=== PATIENT | female | born 1950 | race Caucasian/White ===

== ENCOUNTER → 2017-08-19 | Outpatient (CLI) | payer OTHER ==
[2017-08-19 14:58] LABS: ALANINE AMINOTRANSFERASE 60 U/L (0-55); ALBUMIN 3.6 GM/DL (3.2-4.5); ANION GAP 10 MMOL/L (5-14); ASPARTATE AMINO TRANSFERASE 24 U/L (5-34); BILIRUBIN,TOTAL 0.3 MG/DL (0.1-1.0); BLOOD UREA NITROGEN 14 MG/DL (7-18); BUN/CREATININE RATIO 24; CALCIUM 9.4 MG/DL (8.5-10.1); CARBON DIOXIDE 27 MMOL/L (21-32); CHLORIDE 104 MMOL/L (98-107); CREATININE SERUM 0.58 MG/DL (0.60-1.30); GFR ESTIMATED > 60; GLUCOSE 123 MG/DL (70-105); POTASSIUM 3.9 MMOL/L (3.6-5.0); SODIUM 141 MMOL/L (135-145); TOTAL PROTEIN 6.4 GM/DL (6.4-8.2)
== END ==
LOC: LABNPT 13:10
PROVIDERS: ATTEND Internal Medicine
DX: I69.091 Dysphagia following nontraumatic subarachnoid hemorrhage (principal); G40.89 Other seizures
CPT/HCPCS: 80053; 80185

== ENCOUNTER → 2017-12-02 | Outpatient (CLI) | payer MEDICARE, MEDICAID ==
--- NOTE | 2017-12-02 15:32 | Diagnostic Imaging Report ---
INDICATION: Dysphagia and prior stroke. PROCEDURE: The procedure was performed in conjunction with speech pathology. Video fluoroscopy was performed during swallowing of barium in multiple consistencies. A total of 2 minutes and 13 seconds of fluoroscopy was utilized. Patient was administered honey and thin consistency as well as applesauce consistency. There was a single episode of flash penetration during swallowing of honey consistency. A second swallow of honey was within normal limits. There was deeper laryngeal penetration during swallowing of thin barium. No aspiration was observed. There appears to be normal epiglottic tilt and laryngeal elevation. No significant vallecular or piriform sinus residue was detected. IMPRESSION: Two episodes of laryngeal penetration, as described above. No aspiration was observed. Dictated by: Dictated on workstation # [id number]
== END ==
LOC: RAD 09:37
PROVIDERS: ATTEND Nurse Practitioner Community Health
DX: I61.9 Nontraumatic intracerebral hemorrhage, unspecified (principal); R13.12 Dysphagia, oropharyngeal phase; Z86.73 Personal history of transient ischemic attack (TIA), and cerebral infarction without residual deficits
CPT/HCPCS: 74230

== ENCOUNTER 2017-12-09 19:10 | Emergency (ER) | payer MEDICARE, MEDICAID ==
[~2017-12-09] VITALS: Ht 170.2 cm; Wt 67.1 kg
[2017-12-09] MEDS ORDERED: morphine INJ 10 MG/ML 1ML (SYR OR VIAL) IVP STA (19:40)
--- NOTE | 2017-12-09 20:52 | Diagnostic Imaging Report ---
PROCEDURE: CT head and CT cervical spine without contrast. TECHNIQUE: Multiple contiguous axial images were obtained through the brain and cervical spine without the use of intravenous contrast. Sagittal and coronal reformations through the cervical spine were then performed. INDICATION: Trauma. Comparison: None. Findings: CT head: There is prominence of the ventricles, which appears increased compared to the cortical sulci. No acute intracranial hemorrhage is seen. No midline shift is identified. There is hypoattenuation of the subcortical white matter. Focal hypoattenuation is seen in the right frontal cortex, may be from old infarct. There is a focal area of metal artifact in the left parasellar region, likely from prior coiling. No calvarium fracture is seen. CT cervical spine: No acute fracture or malalignment is seen in the cervical spine. There are mild multilevel degenerative changes with multilevel disc bulges present. This results in multilevel spinal canal narrowing. The paraspinous soft tissues are unremarkable. There is a large peripherally calcified nodule in the left thyroid gland. This measures up to 1.8 cm in diameter. IMPRESSION: 1. No acute intracranial hemorrhage. No CT evidence of acute territorial ischemia, although there is extensive white matter hypoattenuation which is thought to be due to chronic microvascular disease. 2. Mild ventriculomegaly, asymmetric when compared to the cortical sulci. 3. Mild multilevel degenerative changes in the cervical spine with no acute osseous abnormality seen. 4. Peripherally calcified left thyroid nodule, consider nonemergent ultrasound for further evaluation. Dictated by: Dictated on workstation # [id number]
--- NOTE | 2017-12-09 21:17 | ED Fall/Injury ---
General Chief Complaint: Trauma-Non Activation Stated Complaint: FALL Nursing Triage Note: NONE Source: patient, snf records, spouse Exam Limitations: no limitations History of Present Illness Date Seen by Provider: Dec 09, 2017 Allergies and Home Medications Allergies Coded Allergies: No Known Drug Allergies (Unverified , 12/09/17) Past Oaqkjmq-Tizqno-Vlfope Hx Patient Social History Alcohol Use: Denies Use Recreational Drug Use: No Smoking Status: Never a Smoker 2nd Hand Smoke Exposure: No Recent Foreign Travel: No Contact w/Someone Who Travel: No Recent Infectious Disease Expo: No Recent Hopitalizations: No Physical Abuse: No Sexual Abuse: No Seasonal Allergies Seasonal Allergies: No Surgeries History of Surgeries: No Respiratory History of Respiratory Disorde: No Cardiovascular History of Cardiac Disorders: No Neurological History of Neurological Disord: Yes Neurological Disorders: Stroke Genitourinary History of Genitourinary Disor: No Gastrointestinal History of Gastrointestinal Di: No Musculoskeletal History of Musculoskeletal Dis: Yes (RESIDUAL FROM STROKE) Endocrine History of Endocrine Disorders: No HEENT History of HEENT Disorders: No Cancer History of Cancer: No Psychosocial History of Psychiatric Problem: No Suicide Risk Score: 0 Integumentary History of Skin or Integumenta: No Physical Exam Vital Signs Vital Signs - First Documented 12/09/17 19:12 Temp 98.0 Pulse 91 Resp 16 B/P (MAP) 119/102 (108) Pulse Ox 98 Capillary Refill : Less Than 3 Seconds Progress/Results/Core Measures Results/Orders My Orders Orders - MARCELINO CRUZ Ct Head/Cervical Spine Wo (12/09/17 19:24) Morphine Injection (Morphine Injection (12/09/17 19:40) Vital Signs/I&O Vital Sign - Last 12Hours 12/09/17 19:12 Temp 98.0 Pulse 91 Resp 16 B/P (MAP) 119/102 (108) Pulse Ox 98 Blood Pressure Mean: 108 Departure Impression Impression: Primary Impression: Fall Disposition: 03 XF SNF Condition: Stable Departure-Patient Inst. Decision time for Depature: 21:16 Referrals: LISSA DURAN MD (PCP) Primary Care Physician [facility] (Family) Primary Care Physician Patient Instructions: Minor Head Injury (DC), Preventing Falls Add. Discharge Instructions: All discharge instructions reviewed with patient and/or family. Voiced understanding.continue usual home medications. Follow-up with your family practitioner within the next 2 weeks for recheck. ice packs or heating pad as needed for pain. Continue usual diet and orders. Please call for appointment time. Return to the emergency department for worsened changes in behavior, vomiting, seizure, facial weakness, black stools, rectal bleeding, neck pain, back pain, or any other concerns. MARCELINO CRUZ Dec 09, 2017 21:17
[2017-12-09 21:24] VITALS: BP 119/102
== END 2017-12-09 21:53 ==
LOC: EDUNIT# 19:10 → ER 19:11
DX: Z04.3 Encounter for examination and observation following other accident (principal); Z86.73 Personal history of transient ischemic attack (TIA), and cerebral infarction without residual deficits; W19.XXXA Unspecified fall, initial encounter
CPT/HCPCS: 70450; 72125; 96374

== ENCOUNTER 2018-10-19 23:27 | Emergency (ER) | payer MEDICARE, MEDICAID | END 2018-10-20 01:03 | LOC: ER 23:27 ==

== ENCOUNTER → 2019-10-02 | Outpatient (CLI) | payer MEDICARE, MEDICAID ==
--- NOTE | 2019-10-02 13:45 | Diagnostic Imaging Report ---
PROCEDURE: CT head without contrast. TECHNIQUE: Multiple contiguous axial images were obtained through the brain without the use of intravenous contrast. Auto Exposure Controls were utilized during the CT exam to meet ALARA standards for radiation dose reduction. All CT scans use one or more of the following dose optimizing techniques: automated exposure control, MA and/or KvP adjustment based on patient size and exam type or iterative reconstruction. INDICATION: Traumatic brain injury. COMPARISON: Correlation is made with prior head CT from 10/19/2018. 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 Overall, ventricular size appears to be stable. Extensive periventricular and subcortical low density is noted consistent with chronic microvascular ischemia. No sulcal effacement or midline shift is detected. No acute intra-axial or extra-axial hemorrhage is detected. Cisterns are patent. Visualized paranasal sinuses are clear. IMPRESSION: Stable chronic and postsurgical changes when compared to exam from 10/19/2018. No acute intracranial process is detected. Dictated by: Dictated on workstation # [id number]
== END ==
LOC: RAD 12:28
PROVIDERS: ATTEND Nurse Practitioner Community Health
DX: R46.89 Other symptoms and signs involving appearance and behavior (principal); Z87.820 Personal history of traumatic brain injury; Z98.890 Other specified postprocedural states
CPT/HCPCS: 70450

== ENCOUNTER 2020-03-17 05:30 | Outpatient (RCR) | payer MEDICARE, MEDICAID ==
[~2020-03-17] VITALS: Ht 162.6 cm; Wt 50.3 kg
[~2020-03-17 05:30] MED LIST: ACET325T49 PO; ASCO-262 PO; BISA10SU8 RC; CRAN450T9 PO; DESV100T6 PO; DIVA125C PO; DOCU100T2 PO; DRON10CA5 PO; ESLI400T PO; FAMO20TA5 PO; LACT1CAP8 PO; ONDN4T PO; POLY119P12 PO
== END 2020-03-17 15:20 | disposition home or self-care (01) ==
LOC: PREOP 05:30
PROVIDERS: ATTEND Surgery
DX: Z01.812 Encounter for preprocedural laboratory examination (principal); R63.4 Abnormal weight loss; Z20.828 Contact with and (suspected) exposure to other viral communicable diseases
CPT/HCPCS: 87635

== ENCOUNTER 2020-03-19 08:51 | Day surgery (SDC) | payer MEDICARE, MEDICAID ==
[~2020-03-19] VITALS: Ht 162.6 cm; Wt 50.3 kg
[2020-03-19] VITALS (16 sets, daily range): BP systolic 102–143; BP diastolic 68–88
[2020-03-19] MEDS ORDERED: NS IV 500 ML 500 ML ONE (08:58)
[2020-03-19] MEDS ORDERED: NS IV 500 ML 500 ML IV PRN (09:12)
--- OUTSIDE RECORDS SUMMARY | 2020-03-19 09:12 | XMS REPORT ---
Author Author Belia DENSON Organization [facility] Address [address] [place] [address] Care Team Providers Care Utility Bill Collector Name Role Phone SILVINO DENSON Unavailable PROBLEMS Type Condition ICD9-CM Code RRG98-YS Code Onset Dates Condition S tatus SNOMED Code Problem Pure hypercholesterolemia E78.00 Acti ve 050935600 Problem Other depression F32.89 Active 354 05775 Problem Agitation R45.1 Active 93512743 Problem Intracranial hemorrhage I62.9 Active 4241841 Problem Impulse control disorder F63.9 Activ e 53779755 Problem Adjustment disorder with depressed mood F43.21 Active 83899106 Problem Anorexia R63.0 Active 28715926 Problem Cerebral infarction, unspecified I63.9 Active 88361519 Problem Anxiety F41.9 Active 54054929 Problem Major depressive disorder, recurrent, moderate F33 .1 Active 73185930 Problem Seizure disorder G40.909 Active 128 154705 Problem Slow transit constipation K59.01 Acti ve 07940480 ALLERGIES No Information ENCOUNTERS Encounter Location Date Diagnosis [facility] [address] [facility] [place] [address] Dec, [facility] [address] [place], [place] [id number] Nov History of traumatic brain injury Z87.820 and Seizures R56.9 [facility] [address] [place] [address] [id number] Nov Major depressive disorder, recurrent, moderate F33.1 ; Malaise R53.81 and Nausea R11.0 [facility] [address] [place] [address] [id number] Oct Anorexia R63.0 ; History of traumatic brain injury Z87.820 ; Macrocytic anemia D53.9 ; Lethargy R53.83 and Major depressive disorder, recurrent, moderate F33.1 [place] [address] [address] 14 Oct, 2019 [facility] [address] [place] [address] [id number] Oct Malaise R53.81 and History of traumatic brain injury Z87.820 [place] [address] [address] Sep, Seizures R56.9 and Malaise R53.81 [facility] [address] [place] [address] [id number] Sep Intracranial hemorrhage I62.9 ; Seizure disorder G40.909 and Impulse control disorder F63.9 [place] [address] [address] Sep, [facility] [address] [place] [address] [id number] Sep Major depressive disorder, recurrent, moderate F33.1 ; H/O traumatic brain injury Z87.820 and Abnormal behavior R46.89 [place] [address] [address] Sep, [place] [address] [address] Sep, H/O traumatic brain injury Z87.820 and A bnormal behavior R46.89 [place] [address] [address] Sep, Major depressive disorder, recurrent, mo derate F33.1 [place] [address] [address] Sep, [place] [address] [address] Sep, [facility] [address] [place] [id number] Sep History of traumatic brain injury Z87.820 and Change in behavior R46.89 [place] [address] [address] Aug, [facility] [address] [place] [id number] Aug History of traumatic brain injury Z87.820 [facility] [address] [address] Aug, [facility] [address] [place] [id number] Aug History of traumatic brain injury Z87.820 and Intracranial hemorrhage I62.9 [facility] [address] [address] Aug, [facility] [address] [address] Aug, [place] [address] [address] Aug, Seizures R56.9 [place] [address] [address] Aug, Major depressive disorder, recurrent, mo derate F33.1 [place] [address] [address] Jul, [place] [address] [address] Jul, [facility] [address] [place] [address] [id number] Jul Mood change R45.[address] [address] Jul, Other depression F32.89 [place] [address] [address] Jul, Major depressive disorder, recurrent, mo derate F33.1 [place] [address] [address] 14 Jul, 2019 Seizures R56.9 [facility] [address] [address] 14 Jul, 2019 Seizures R56.9 [facility] [address] [place] [address] [id number] Jun Adjustment disorder with depressed mood F43.21 and Seizure disorder G40.909 [facility] [address] [place] [id number] Jun, Major depressive disorder, recurrent, mo derate F33.1 [facility] [address] [address] Jun, Seizures R56.9 [facility] [address] [address] Jun, Seizures R56.9 [facility] [address] [place] [id number] Jun, Major depressive disorder, recurrent, mo derate F33.1 [facility] [address] [place] [id number] Jun, Major depressive disorder, recurrent, mo derate F33.1 [facility] [address] [address] May, Seizures R56.9 [facility] [address] [address] May, Major depressive disorder, recurrent, mo derate F33.1 [facility] [address] [address] Apr, Other depression F32.89 [facility] [address] [id number] Apr, Caries K02.9 [facility] [address] [address] Apr, Macrocytic anemia D53.9 [facility] [address] [place] [address] [place] [phone] Apr, Dental examination Z01.20 [facility] [address] [place] [id number] Apr Mouth pain K13.79 and History of traumatic brain injury Z87.820 [facility] [address] [address] Apr, Major depressive disorder, recurrent, mo derate F33.1 [place] [address] [address] Apr, [facility] [address] [address] Apr, [facility] [address] [address] Apr, Major depressive disorder, recurrent, mo derate F33.1 [place] [address] [address] Mar, Seizures R56.9 ; History of traumatic br ain injury Z87.820 ; Impulse control disorder F63.9 and Physically aggressive behavior R46.89 [facility] [address] [place] [id number] Mar History of traumatic brain injury Z87.820 ; Seizures R56.9 and Impulse control disorder F63.9 [place] [address] [address] Mar, [place] [address] [address] Mar, Major depressive disorder, recurrent, mo derate F33.1 [place] [address] [address] Mar, Other depression F32.89 [place] [address] [address] Mar, [place] [address] [address] Mar, [facility] [address] [place] [id number] Mar Weight loss R63.4 ; Other depression F32.89 ; Impulse control disorder F63.9 and Diarrhea, unspecified type R19.7 [place] [address] [address] Mar, Major depressive disorder, recurrent, mo derate F33.1 [facility] [address] [address] Feb, History of traumatic brain injury Z87.82 0 [facility] [address] [place] [id number] Feb, Major depressive disorder, recurrent, mo derate F33.1 [facility] [address] [place] [id number] Feb, [facility] [address] [address] Feb, [facility] [address] [place] [id number] Feb, History of traumatic brain injury Z87.82 0 [place] [address] [address] Feb, Urinary retention R33.9 [facility] [address] [place], [place] [id number] Feb History of traumatic brain injury Z87.820 ; Physically aggressive behavior R46.89 and Slow transit constipation K59.01 [place] [address] [place] [id number] Feb, [facility] [address] [place] [id number] Feb History of traumatic brain injury Z87.820 ; History of UTI Z87.440 and Agitation R45.1 [place] [address] [address] Feb, Major depressive disorder, recurrent, mo derate F33.1 [facility] [address] [place] [id number] January Urinary tract infection without hematuria, site unspecified N39.0 and Other depression F32.89 [facility] [address] [address] January, History of traumatic brain injury Z87.82 0 [facility] [address] [place] [address] January, Hypokalemia E87.6 [facility] [address] [address] January, History of traumatic brain injury Z87.82 0 [facility] [address] [place] [phone] January Change in behavior R46.89 [facility] [address] [address] January, [facility] [address] [address] January, [facility] [address] [address] January, Seizures R56.9 [facility] [address] [address] January, [facility] [address] [address] January, [facility] [address] [address] January, Other depression F32.89 [facility] [address] [address] Dec, Major depressive disorder, recurrent, mo derate F33.1 [facility] [address] [address] Dec, History of traumatic brain injury Z87.82 0 [facility] [address] [place] [phone] Dec Adjustment disorder with depressed mood F43.21 and Seizure disorder G40.909 [facility] [address] [address] Dec, Major depressive disorder, recurrent, mo derate F33.1 [facility] [address] [address] Dec, History of traumatic brain injury Z87.82 0 [facility] [address] [place] [id number] Dec, [place] [address] [place] [address] Dec, Major depressive disorder, recurrent, mo derate F33.1 [place] [address] [place] [id number] Nov, History of traumatic brain injury Z87.82 0 [place] [address] [place] [id number] Nov, Major depressive disorder, recurrent, mo derate F33.1 [facility] [address] [place] [id number] Nov History of traumatic brain injury Z87.820 [facility] [address] [place] [address] [id number] Oct History of traumatic brain injury Z87.820 [place] [address] [address] Oct, History of traumatic brain injury Z87.82 0 and Anxiety F41.9 [facility] [address] [place] [address] [id number] Oct [facility] [address] [place] [address] [id number] Oct History of traumatic brain injury Z87.820 [place] [address] [address] Oct, Agitation R45.1 [place] [address] [place] [id number] Oct, [facility] [address] [place] [address] [id number] Oct Decreased urine output R34 and Other depression F32.89 [place] [address] [place] [id number] Sep, [facility] [address] [place] [id number] Sep History of traumatic brain injury Z87.820 ; Seizures R56.9 and Other depression F32.89 [place] [address] [address] Sep, [place] [address] [address] Sep, Other depression F32.89 [facility] [address] [place] [id number] Sep History of intracranial hemorrhage Z86.79 ; Flat affect R45.89 ; Unspecified intracranial injury with loss of consciousness of unspecified duration, sequela S06.9X9S and Mood disorder due to known physiological condition, unspecified F06.30 [place] [address] [address] Sep, [facility] [address] [place] [address] [id number] Aug Intracranial hemorrhage I62.9 ; Other depression F32.89 ; Seizures R56.9 and Dark brown-colored urine R82.998 [facility] [address] [place] [id number] Aug, Caries K02.9 and Dental examination Z01. 20 [facility] [address] [place] [id number] Aug Herpes zoster without complication B02.9 ; Moderate episode of recurrent major depressive disorder F33.1 ; Seizures R56.9 ; History of traumatic brain injury Z87.820 and Pure hypercholesterolemia E78.00 [place] [address] [address] Aug, [place] [address] [address] Jul, [place] [address] [address] Jun, [facility] [address] [place] [id number] Jun History of traumatic brain injury Z87.820 ; Seizures R56.9 ; Weakness R53.1 and Financial difficulty Z59.[address] [address] Jun, [place] [address] [address] May, [facility] [address] [place] [address] [id number] May Intracranial hemorrhage I62.9 and Adjustment disorder with depressed mood F43.21 [facility] [address] [place] [address] [id number] Apr Flat affect R45.89 ; Seizures R56.9 and History of traumatic brain injury Z87.820 [place] [address] [address] Mar, [facility] [address] [place] [address] [id number] Mar Intracranial hemorrhage I62.9 ; Mute R47.01 and Flat affect R45.89 [place] [address] [address] Feb, [facility] [address] [place] [address] [id number] January Intracranial hemorrhage I62.9 and At risk for impairment of sleep Z91.89 [place] [address] [address] Dec, [place] [address] [address] Nov, [facility] [address] [place] [address] [id number] Nov Intracranial hemorrhage I62.9 [place] [address] [address] Oct, [place] [address] [id number] [phone] Oct, [facility] [address] [place] [address] [id number] Sep Intracranial hemorrhage I62.9 ; Oral phase dysphagia R13.11 ; On tube feeding diet Z78.9 ; Mute R47.01 and Weakness R53.1 [facility] [address] [place] [address] [id number] Jul Intracranial hemorrhage I62.9 ; Seizures R56.9 and On tube feeding diet Z78.9 [facility] [address] [facility] [id number] [place] [address] Jul, [facility] [address] [place] [id number] Jul Encounter for examination for admission to senior care Z02.2 ; Intracranial hemorrhage I62.9 ; On tube feeding diet Z78.9 and Seizures R56.9 IMMUNIZATIONS No Known Immunizations SOCIAL HISTORY Never Assessed REASON FOR VISIT NH refill Adderall PLAN OF CARE VITAL SIGNS MEDICATIONS Medication Instructions Dosage Frequency Start Date End Date Duration S rohan Adderall XR 10 MG Orally Once a day 1 capsules in the morning 24h Nov, 28 days Active RESULTS No Results PROCEDURES No Known procedures INSTRUCTIONS MEDICATIONS ADMINISTERED No Known Medications MEDICAL (GENERAL) HISTORY Type Description Date Medical History Other seizures Medical History Gastrostomy status Medical History Hyperlipemia Medical History Cigarette nicotine dependence Medical History Hemorrhoids, internal Medical History Dysphagia following nontraumatic subarac hnoid hemorrhage Medical History Chronic hypertension Medical History Major depression, recurrent, chronic Medical History Herpes zoster without complication Medical History Generalized muscle weakness Medical History Chronic constipation Medical History Dysuria Medical History Cognitive communication deficit Medical History Aphasia Medical History Unsteadiness on feet Medical History Dysphagia, oropharyngeal phase Medical History Diffuse traumatic brain inju ry with loss of consciousness of unspecified duration, subsequent encounter Surgical History brain surgery (pt has had a stroke and anyerism, causing pt mobility/commuication skills to be distorted) 06/07/2017 Surgical History hysterectomy 1999 Hospitalization History pt has had stroke/anyerism
--- OUTSIDE RECORDS SUMMARY | 2020-03-19 09:12 | XMS REPORT | Continuity of Care Document ---
Author Organization Unknown Address Unknown Phone Unavailable Allergies Active Description Code Type Severity Reaction Onset Reported/Identified Relationship to Patient Clinical Status Yes No Known Drug Allergies [id number] Drug Allergy Unknown N/A 12/09/2017 Medications There is no data. 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 08/25/2017 LISSA DURAN MD Ot G40.89 OTHER SEIZURES 08/25/2017 LISSA DURAN MD Ot 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 09/28/2017 LISSA DURAN MD Ot G40.89 OTHER SEIZURES 09/28/2017 LISSA DURAN MD Ot 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 12/01/2017 LISSA DURAN MD Ot G40.89 OTHER SEIZURES 12/01/2017 LISSA DURAN MD Ot 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 12/02/2017 LISSA DURAN MD Ot G40.89 OTHER SEIZURES 12/02/2017 LISSA DURAN MD Ot 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 12/02/2017 KARLA DENSONA ELECTRICIAN MANAGER Ot R13.12 DYSPHAGIA, OROPHARYNGEAL PHASE 12/05/2017 KARLA DENSONA ELECTRICIAN MANAGER Ot I61.9 NONTRAUMATIC INTRACEREBRAL HEMORRHAGE, U 12/05/2017 JULIO CESAR DENSONNDA ELECTRICIAN MANAGER Ot R13.12 DYSPHAGIA, OROPHARYNGEAL PHASE 12/05/2017 KARLA DENSONA ELECTRICIAN MANAGER Ot Z86.73 PRSNL HX OF TIA (TIA), AND CEREB INFRC W 12/09/2017 MARCELINO HERNANDEZ L Ot W19.XXXA UNSPECIFIED FALL, INITIAL ENCOUNTER 12/09/2017 MARCELINO HERNANDEZ Ot Z04.3 ENCOUNTER FOR EXAM AND [facility]BSERVATION [facility] 12/09/2017 MARCELINO HERNANDEZ Ot Z86.73 PRSNL HX OF TIA (TIA), AND CEREB INFRC W 12/12/2017 MARCELINO HERNANDEZ L Ot W19.XXXA UNSPECIFIED FALL, INITIAL ENCOUNTER 12/12/2017 MARCELINO HERNANDEZ Ot Z04.3 ENCOUNTER FOR EXAM AND [facility]BSERVATION [facility] 12/12/2017 MACRELINO HERNANDEZ L Ot Z86.73 PRSNL HX OF TIA (TIA), AND CEREB INFRC W 01/02/2018 KARLA DENSONA ELECTRICIAN MANAGER Ot I61.9 NONTRAUMATIC INTRACEREBRAL HEMORRHAGE, U 01/02/2018 KARLA DENSONA ELECTRICIAN MANAGER Ot R13.12 DYSPHAGIA, OROPHARYNGEAL PHASE 01/02/2018 JULIO CESAR DENSONNDA ELECTRICIAN MANAGER Ot Z86.73 PRSNL HX OF TIA (TIA), AND CEREB INFRC W 01/17/2018 JULIO CESAR DENSONNDA ELECTRICIAN MANAGER Ot I61.9 NONTRAUMATIC INTRACEREBRAL HEMORRHAGE, U 01/17/2018 JULIO CESAR DENSONNDA ELECTRICIAN MANAGER Ot R13.12 DYSPHAGIA, OROPHARYNGEAL PHASE 01/17/2018 JANIYA, SILVINO ELECTRICIAN MANAGER Ot Z86.73 PRSNL HX OF TIA (TIA), AND CEREB INFRC W 04/15/2018 Lissa Duran W 345.80 OTHER FORMS OF EPILEPSY AND RECURRENT SEIZURES, WITHOUT MENTION OF INTRACTABLE EPILEPSY 04/15/2018 Lissa Duran W G40.89 OTHER SEIZURES 10/20/2018 ROGER JOHN, LISSA Elizabeth Ot G40.89 OTHER SEIZURES 10/20/2018 ROGER JOHN, LISSA Elizabeth Ot 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 10/20/2018 SILVINO DENSON Ot I61.9 NONTRAUMATIC INTRACEREBRAL HEMORRHAGE, U 10/20/2018 SILVINO DENSON Ot R13.12 DYSPHAGIA, OROPHARYNGEAL PHASE 10/20/2018 SILVINO DENSON Ot Z86.73 PRSNL HX OF TIA (TIA), AND CEREB INFRC W 10/20/2018 CASTILLO GUILLEN DO Ot F32.9 MAJOR DEPRESSIVE DISORDER, SINGLE EPISOD 10/20/2018 WILMER CASTILLO RECIO Ot F41.9 ANXIETY DISORDER, UNSPECIFIED 10/20/2018 CASTILLO GUILLEN DO Ot G40.909 EPILEPSY, UNSP, NOT INTRACTABLE, WITHOUT 10/20/2018 PHILOMENA GUILLEN DOA Benji Ot I10 ESSENTIAL (PRIMARY) HYPERTENSION 10/20/2018 CASTILLO GUILLEN DO Ot W19.XXX A UNSPECIFIED FALL, INITIAL ENCOUNTER 10/20/2018 CASTILLO GUILLEN DO Ot Y92.[address] 10/20/2018 CASTILLO GUILLEN DO Ot Z04.3 ENCOUNTER FOR EXAM AND OBSERVATION [facility] 10/20/2018 CASTILLO GUILLEN DO Ot Z86.73 PRSNL HX OF TIA (TIA), AND CEREB INFRC W 10/20/2018 CASTILLO GUILLEN DO Ot Z87.19 PERSONAL HISTORY OF OTHER DISEASES OF TH 10/20/2018 CASTILLO GUILLEN DO Ot Z87.448 PERSONAL HISTORY OF OTHER DISEASES OF UR 10/20/2018 CASTILLO GUILLEN DO Ot Z87.820 PERSONAL HISTORY OF TRAUMATIC BRAIN INJU 10/20/2018 CASTILLO GUILLEN DO Ot 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 NICOTINE DEPENDENCE 10/20/2018 CASTILLO GUILLEN DO Ot Z90.710 ACQUIRED ABSENCE OF BOTH CERVIX AND UTER 10/23/2018 CASTILLO GUILLEN DO Ot F32.9 MAJOR DEPRESSIVE DISORDER, SINGLE EPISOD 10/23/2018 CASTILLO GUILLEN DO Ot F41.9 ANXIETY DISORDER, UNSPECIFIED 10/23/2018 CASTILLO GUILLEN DO Ot G40.909 EPILEPSY, UNSP, NOT INTRACTABLE, WITHOUT 10/23/2018 CASTILLO GUILLEN DO Ot I10 ESSENTIAL (PRIMARY) HYPERTENSION 10/23/2018 CASTILLO GUILLEN DO Ot W19.XXX A UNSPECIFIED FALL, INITIAL ENCOUNTER 10/23/2018 CASTILLO GUILLEN DO Ot Y92.[address] 10/23/2018 CASTILLO GUILLEN DO Ot Z04.3 ENCOUNTER FOR EXAM AND OBSERVATION [facility] 10/23/2018 CASTILLO GUILLEN DO Ot Z86.73 PRSNL HX OF TIA (TIA), AND CEREB INFRC W 10/23/2018 CASTILLO GUILLEN DO Ot Z87.19 PERSONAL HISTORY OF OTHER DISEASES OF TH 10/23/2018 CASTILLO GUILLEN DO Ot Z87.448 PERSONAL HISTORY OF OTHER DISEASES OF UR 10/23/2018 CASTILLO GUILLEN DO Benji Ot Z87.820 PERSONAL HISTORY OF TRAUMATIC BRAIN INJU 10/23/2018 CASTILLO GUILLEN DO Ot 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 NICOTINE DEPENDENCE 10/23/2018 CASTILLO GUILLEN DO Ot Z90.710 ACQUIRED ABSENCE OF BOTH CERVIX AND UTER 10/02/2019 LISSA DURAN MD Ot G40.89 OTHER SEIZURES 10/02/2019 LISSA DURAN MD Ot 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 10/02/2019 SILVINO DENSON Ot I61.9 NONTRAUMATIC INTRACEREBRAL HEMORRHAGE, U 10/02/2019 SILVINO DENSON Ot R13.12 DYSPHAGIA, OROPHARYNGEAL PHASE 10/02/2019 SILVINO DENSON Ot Z86.73 PRSNL HX OF TIA (TIA), AND CEREB INFRC W 10/07/2019 SILVINO DENSON Ot R46.89 OTHER SYMPTOMS AND SIGNS INVOLVING APPEA 10/07/2019 SILVINO DENSON Ot Z87.820 PERSONAL HISTORY OF TRAUMATIC BRAIN INJU 10/07/2019 SILVINO DENSON Ot Z98.890 OTHER SPECIFIED POSTPROCEDURAL STATES 10/26/2019 SILVINO DENSON Ot R46.89 OTHER SYMPTOMS AND SIGNS INVOLVING APPEA 10/26/2019 SILVINO DENSON Ot Z87.820 PERSONAL HISTORY OF TRAUMATIC BRAIN INJU 10/26/2019 SILVINO DENSON Ot Z98.890 OTHER SPECIFIED POSTPROCEDURAL STATES 11/07/2019 SILVINO DENSON Ot R46.89 OTHER SYMPTOMS AND SIGNS INVOLVING APPEA 11/07/2019 SILVINO DENSON Ot Z87.820 PERSONAL HISTORY OF TRAUMATIC BRAIN INJU 11/07/2019 SILVINO DENSON Ot Z98.890 OTHER SPECIFIED POSTPROCEDURAL STATES Procedures There is no data. Results Test Result Range Comprehensive metabolic panel - 08/19/17 13:10 Serum or plasma sodium measurement (moles/volume) 141 mmol/L 135-145 Serum or plasma potassium measurement (moles/volume) 3.9 mmol/L 3.6-5.0 Serum or plasma chloride measurement (moles/volume) 104 mmol/L 98-107 Carbon dioxide 27 mmol/L 21-32 Serum or plasma anion gap determination (moles/volume) 10 mmol/L 5-14 Serum or plasma urea nitrogen measurement (mass/volume ) 14 mg/dL 7-18 Serum or plasma creatinine measurement (mass/volume) 0.58 mg/dL 0.60-1.30 Serum or plasma urea nitrogen/creatinine mass ratio 24 NRG Serum or plasma creatinine measurement w ith calculation of estimated glomerular filtration rate > NRG Serum or plasma glucose measurement (mass/volume) 123 mg/dL 70-105 Serum or plasma calcium measurement (mass/volume) 9.4 mg/dL 8.5-10.1 Serum or plasma total bilirubin measurement (mass/volu me) 0.3 mg/dL 0.1-1.0 Serum or plasma alkaline phosphatase chava surement (enzymatic activity/volume) 139 U/L 40-136 Serum or plasma aspartate aminotransfera se measurement (enzymatic activity/volume) 24 U/L 5-34 Serum or plasma alanine aminotransferase measurement (enzymatic activity/volume) 60 U/L 0-55 Serum or plasma protein measurement (mass/volume) 6.4 g/dL 6.4-8.2 Serum or plasma albumin measurement (mass/volume) 3.6 g/dL 3.2-4.5 Serum or plasma phenytoin measurement (m ass/volume) - 08/19/17 13:10 Serum or plasma phenytoin measurement (mass/volume) 7.3 ug/mL 10.0-20.0 Dilantin - 04/15/18 09:50 Dilantin 17.3 ug/mL 10.0-20.0 Levetiracetam (Keppra), S - 04/15/18 09: 50 LEVETIRACETAM, S 14.4 UG/ML 10.0-40.0 Levetiracetam (Keppra), S - 04/15/18 09: 50 Levetiracetam, S 14.4 ug/mL 10.0-40.0 Coronavirus SARS-CoV-2 SO 2018 0 08:05 Coronavirus Ab [Units/volume] in Serum Negative Negative Encounters ACCT No. Visit Date/Time Discharge Status Pt. Type Provider Facility Loc./Unit Complaint [id number] 10/04/2019 13:00:00 10/04/2019 23:59: 59 C[id number] 04/15/2018 11:54:00 04/15/2018 23:59: 00 DIS Outpatient Lissa Duran [id number] 04/18/2018 18:15:00 Document Registration [id number] 03/17/2020 05:30:00 020 15:20:00 DIS Outpatient RENO MEDINA MD [facility] PREOP EGD [id number] 10/02/2019 12:28:00 020 23:59:59 CLS Outpatient SILVINO DENSON [facility] RAD HX OF TRAUMATIC BRAIN INJURY [id number] 10/19/2018 23:27:00 019 01:03:00 DIS Emergency CASTILLO GUILLEN DO [facility] ER FALL [id number] 12/09/2017 19:11:00 018 21:53:00 DIS Emergency MARCELINO HERNANDEZ [facility] ER FALL [id number] 12/02/2017 09:37:00 018 23:59:59 CLS Outpatient SILVINO DENSON [facility] RAD DYSPHAGIA [id number] 08/19/2017 13:10:00 017 23:59:59 CLS Outpatient ROGER JOHN, LISSA Elizabeth [facility] LABT [id number] 03/19/2020 10:15:00 P EN Sixto MEDINA MD, RENO [facility] [place] ENDO WT LOSS
[2020-03-19] MEDS ORDERED: HURRICAINE EXT TUBE (BENZOCAINE) XX PRN (09:15)
[2020-03-19] MEDS ORDERED: LIDOCAINE JELLY 2% 6 ML SYRINGE MM PRN (09:15)
[2020-03-19] MEDS ORDERED: fentaNYL INJECTION 100 MCG/2 ML AMP IVP ONE (09:15)
[2020-03-19] MEDS ORDERED: LIDOCAINE JELLY 2% 6 ML SYRINGE ONE (10:16)
[2020-03-19] MEDS ORDERED: fentaNYL INJECTION 100 MCG/2 ML AMP ONE (10:17)
[2020-03-19] MEDS ORDERED: MIDAZOLAM 5 MG/5 ML (VERSED) VIAL ONE ×2 (10:17→10:30)
[2020-03-19] MEDS ORDERED: HURRICAINE EXT TUBE (BENZOCAINE) ONE (10:17)
[2020-03-19] MEDS: MIDAZOLAM 5 MG/5 ML (VERSED) VIAL IV PRN ×4 (10:18→10:43)
--- NOTE | 2020-03-19 10:22 | Conscious Sedation/ASA ---
Conscious Sedation Pre-Proced Time 10:00 ASA Score 3 For ASA 3 and 4: Consider anesthesia and medical clearance. Also, for patients with a history of failed moderate sedation consider anesthesia. Airway Lungs Heart ASA score ASA 1: a normal healthy patient ASA 2: a patient with a mild systemic disease (mid diabetes, controlled hypertension, obesity ASA 3: a patient with a severe systemic disease that limits activity (angina, COPD, prior Myocardial infarction) ASA 4: a patient with an incapacitating disease that is a constant threat to life (CHF, renal failure) ASA 5: a moribund patient not expected to survive 24 hrs. (ruptured aneurysm) ASA 6: a declared brain- patient whose organs are being harvested. For emergent operations, add the letter E after the classification Mallampati Classification Grade 2 Sedation Plan Analgesia, Amnesia, Plan communicated to team members, Discussed options with patient/fam, Discussed risks with patient/fam The patient is an appropriate candidate to undergo the planned procedure, sedation, and anesthesia. The patient immediately re-assessed prior to indication. RENO MEDINA MD Mar 19, 2020 10:22
--- NOTE | 2020-03-19 10:23 | Progress Note-Pre Operative ---
Pre-Operative Progress Note H&P Reviewed The H&P was reviewed, patient examined and no changes noted. Date Seen by Provider: Mar 19, 2020 Time Seen by Provider: 10:00 Date H&P Reviewed: Mar 19, 2020 Time H&P Reviewed: 10:00 Pre-Operative Diagnosis: weight loss, anorexia RENO MEDINA MD Mar 19, 2020 10:23
--- NOTE | 2020-03-19 10:25 | Discharge Inst-Surgical ---
D/C Lap Instructions-CAROL Follow Up Activity as tolerated may access and use g-tube at any time. High Fiber Diet 25g or more per day Avoid Alcohol, Caffeine, Spicy [place] and Acid foods. Drink 64 fluid oz or more of fluids per day. Symptoms to Report: Fever over 101 degree F, Nausea/Vomiting If any problems/questions: Contact your physician or go to Emergency Room RENO MEDINA MD Mar 19, 2020 10:25
[2020-03-19] MEDS ORDERED: ONDANSETRON 4 MG/2 ML (SDV) Z0FRAN IVP PRN (10:30)
[2020-03-19] MEDS ORDERED: HYDROcodone/APAP 5 MG/325 MG (LORTAB) TAB PO PRN (10:30)
[2020-03-19] MEDS ORDERED: ACETAMINOPHEN 325 MG TABLET PO PRN (10:30)
[2020-03-19] MEDS ORDERED: morphine INJ 10 MG/ML 1ML (SYR OR VIAL) IVP PRN ×2 (10:30)
--- NOTE | 2020-03-19 11:17 | Progress Note-Post Operative ---
Post-Operative Progess Note Surgeon (s)/Admission Specialist (s) Surgeon RENO MEDINA MD Admission Specialist: none Pre-Operative Diagnosis weight loss, anorexia Post-Operative Diagnosis reflux esophagitis(stage 2), small HH(2cm), moderate gastritis. no distal obstructions. Procedure & Operative Findings Date of Procedure 03/19/20 Procedure Performed/Findings EGD with bx and percutaneous gastrostomy tube placement. Anesthesia Type cs with local Estimated Blood Loss Estimated blood loss (mL): minimal Specimens/Packing Specimens Removed ge jxn, antrum RENO MEDINA MD Mar 19, 2020 11:17
--- NOTE | 2020-03-19 12:28 | NUR ---
CALLED REPORT TO MARISSA LALA AT [facility].
--- NOTE | 2020-03-19 13:58 | OPERATIVE REPORT ---
DATE OF SERVICE: 03/19/2020 ATTENDING PRIMARY CARE PHYSICIAN: Dr. Wilburn. 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 PROCEDURE: EGD with biopsy and placement of percutaneous endoscopic gastrostomy tube. SURGEON: Reno Medina MD ANESTHESIA: Conscious sedation with local. ESTIMATED BLOOD LOSS: Minimal. FINDINGS: Reflux esophagitis stage II, small hiatal hernia 2 cm in size, moderate gastritis. DISPOSITION: The patient tolerated the procedure well. INDICATIONS: The patient is a 69-year-old female who was brought in by [facility]. 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 The staff report that she has not been eating or drinking and has had some significant weight loss. She has had a feeding gastrostomy tube in the past; however, she had improved, and this was removed. She has been tried on medical management with Marinol; however, this has not helped with her appetite. The family does want to proceed with placement of another gastrostomy tube for alimentation as well as medications and liquids. DESCRIPTION OF PROCEDURE: The patient was brought to the endoscopy suite, laid in the left lateral decubitus position. After adequate IV pain and sedated medications and conscious sedation anesthesia, the mouthpiece was applied. The endoscope was placed in the mouth, visualized the pharynx and hypopharyngeal region. Vocal cords, epiglottis and vallecula identified and appeared to be normal. The endoscope was then gently abated esophageal opening and esophagus insufflated. The endoscope was then advanced through the first, second and third portion of the esophagus at the level of the GE junction, a reflux esophagitis stage II identified. There were no ulcers or strictures identified in this region and a biopsy was taken with forceps with visualization of good hemostasis. The endoscope was then advanced into the stomach and endoscope retroflexed, visualizing a small hiatal hernia approximately 2 cm in size. There was also moderate severity gastritis more towards the stomach antrum. No formal ulcerations, polyps, or any neoplasms. A biopsy was taken of the antrum to rule out H. pylori with visualization of good hemostasis. The endoscope was then advanced to the pylorus and the first and second portion of the duodenum, which appeared normal with no distal obstructions. We then proceeded with placement of the gastrostomy tube along the previous scar of her previous gastrostomy tube. The abdomen was prepped and draped in standard surgical fashion. A 1% lidocaine was then used to anesthetize the skin, muscle layers as well as the stomach with visualization of the needle through the endoscope. A small skin incision was made using 11 blade and the trocar and sheath were then introduced under direct visualization. The trocar removed and the guidewire was placed through the sheath and looped through the endoscope and pulled out the mouth. The gastrostomy tube was then placed on to guidewire and pulled through and the endoscope was placed back in visualizing the rubber bolster firmly apposing the anterior wall of the stomach. Good hemostasis was also observed. Bacitracin ointment was then placed onto the exit site of the skin followed by drain sponges and the external rubber bolster. The patient tolerated the procedure well. The gastrostomy tube may be accessed and used at any time. We will also recommend applying drain sponges b.i.d. until no drainage and then they may leave open to air. Job ID: [id number] DocumentID: [id number] Dictated Date: 03/19/2020 11:08:41 Tool Maker Bench Date: 03/19/2020 13:57:05 Dictated By: RENO MEDINA MD
== END 2020-03-19 12:40 | disposition home or self-care (01) ==
LOC: ENDO 08:51
PROVIDERS: ATTEND Surgery
DX: K21.0 Gastro-esophageal reflux disease with esophagitis (principal); K44.9 Diaphragmatic hernia without obstruction or gangrene; K29.70 Gastritis, unspecified, without bleeding; E78.5 Hyperlipidemia, unspecified; F32.9 Major depressive disorder, single episode, unspecified; I10 Essential (primary) hypertension; E78.00 Pure hypercholesterolemia, unspecified; Z79.899 Other long term (current) drug therapy; Z87.820 Personal history of traumatic brain injury

== ENCOUNTER 2021-11-20 12:01 | Outpatient (CLI) | payer MEDICARE, MEDICAID ==
[~2021-11-20] VITALS: Ht 165.1 cm; Wt 55.3 kg
[2021-11-20] MEDS ORDERED: LIDOCAINE/EPI 1%-1:100,000 (XYLOCAINE) 10 ML INJ ONE (12:30)
[2021-11-20 13:04] VITALS: BP 122/71
[2021-11-20 14:31] VITALS: BP 122/71
--- NOTE | 2021-11-20 18:16 | OPERATIVE REPORT ---
DATE OF SERVICE: 11/20/2021 ATTENDING PRIMARY CARE PHYSICIAN: Dr. Trino Wilburn. PREOPERATIVE DIAGNOSES: Nonfunctioning gastrostomy tube with history of traumatic brain injury and dysphagia. POSTOPERATIVE DIAGNOSES: Nonfunctioning gastrostomy tube with history of traumatic brain injury and dysphagia. PROCEDURE PERFORMED: Removal and replacement of gastrostomy tube. SURGEON: Reno Medina MD. ANESTHESIA: Local. ESTIMATED BLOOD LOSS: Minimal. FINDINGS: A 22-Colombian BOUBACAR gastrostomy tube placed without any resistance. DISPOSITION: The patient tolerated the procedure well. INDICATIONS FOR PROCEDURE: The patient is a 70-year-old female known to us. She was involved in a traumatic brain injury and has been a resident of the [facility]. She, over the time, developed significant dysphagia and weight loss. Family did consent to placement of a gastrostomy tube, which was placed in 02/2021. The gastrostomy tube became nonfunctional starting yesterday. DESCRIPTION OF PROCEDURE: The abdomen was prepped and draped in a standard surgical fashion. A 1% lidocaine with epinephrine was infused in the office before the procedure. The gastrostomy tube was removed completely intact and a 22-Colombian gastrostomy tube was placed without any resistance. The balloon was insufflated with sterile water to 10 mm. The gastric contents were aspirated and water was pushed in without any resistance. The rubber bolster was then applied firmly to the abdominal wall after drain sponges were placed. The patient tolerated the procedure well. The gastrostomy tube may be accessed and used at any time. Job ID: [id number] DocumentID: [id number] Dictated Date: 11/20/2021 13:15:37 Oracle Erp Architect Date: 11/20/2021 18:15:00 Dictated By: RENO MEDINA MD
== END 2021-11-20 13:15 ==
LOC: ENDO 12:01
PROVIDERS: ATTEND Surgery
DX: K94.23 Gastrostomy malfunction (principal)

== ENCOUNTER → 2023-06-09 | Outpatient (CLI) | payer MEDICARE, MEDICAID ==
[~2023-06-09] MED LIST changes: +DIATRIZOATE MEGLUM/SODIUM 37% 120 ML (GASTROGRAFIN) PO ONE; -DRON10CA5 PO; +DRON10CA8 PO
--- NOTE | 2023-06-09 16:58 | Diagnostic Imaging Report ---
Indication: Uncertain PEG tube location. Images were obtained before and after injecting the PEG tube with 30 mg of Gastrografin. PEG tube is seen with tip overlying the gastric antrum. Injected contrast is within the stomach without evidence extravasation. Bowel gas pattern is unremarkable Impression: The PEG tube is within the stomach with no extravasation or obstruction. Dictated by: Dictated on workstation # [id number]
== END ==
LOC: RAD 13:01
PROVIDERS: ATTEND Nurse Practitioner Community Health
DX: Z93.1 Gastrostomy status (principal)
CPT/HCPCS: 49465